=== PATIENT | male | born 1980 | race Caucasian/White ===

== ENCOUNTER 2016-08-18 10:05 | Emergency (ER) | payer OTHER ==
[~2016-08-18] VITALS: Ht 180.3 cm; Wt 108.9 kg
[~2016-08-18 10:05] MED LIST: ALEVE220 MG PO; AMOXICILLIN500 MG PO; BUSPIRONE HCL5 MG PO; COUMADIN5 MG PO; CYMBALTA60 MG PO; FLEXERIL10 MG PO; FLEXERIL5 MG PO; FLUOXETINE HCL40 MG PO; IBUPROFEN400 MG PO; LOVENOX120 MG/0.8 SC; MOTRIN800 MG PO; NORCO 5/3251 TABLET PO; PROZAC40 MG PO; RANITIDINE HCL150 MG PO; ST. JOSEPH ASPI81 MG PO; TRAMADOL HCL50 MG PO; ULTRAM50 MG PO; VICODIN 5-3001 EACH PO; XARELTO20 MG PO; ZESTORETIC 20-1 EAC1 PO; ZESTRIL20 MG PO; ZOFRAN4 MG PO
[2016-08-18 11:32] LABS: BASOPHIL COUNT 0.1 K/uL (0-0.1); EOSINOPHIL (%) 1.4 % (0-5); EOSINOPHIL COUNT 0.1 K/uL (0-0.3); HEMATOCRIT 47.3 % (38.0-50.0); IMMATURE GRANULOCYTE (%) 0.5 % (0.0-0.7); INSTRUMENT ABS NEUTROPHIL CT 5.6 K/uL; LYMPHOCYTE COUNT 0.6 K/uL (1.0-2.8); MCH 30.4 PG (29.0-34.0); MCV 89.2 FL (86-99); MEAN PLAT.VOLUME 11.6 uM^3 (9.0-12.4); MONOCYTE (%) 13.2 % (3-12); NEUTROPHIL (%) 76.2 % (45-76); NEUTROPHIL COUNT 5.6 K/uL (1.8-6.4); PLATELET COUNT 156 K/uL (156-360); RBC DIS.WIDTH-CV 12.7 % (11.8-14.6); RBC DIS.WIDTH-SD 41.8 % (39-53); WHITE BLOOD COUNT 7.4 K/uL (4.1-10.2)
[2016-08-18 11:45] LABS: CHLORIDE 102 mEq/L (99-109); POTASSIUM 4.5 mEq/L (3.7-5.4); SODIUM 133 mEq/L (136-147)
[2016-08-18 11:48] LABS: GLUCOSE 104 mg/dL (70-99)
[2016-08-18 11:49] LABS: ANION GAP 7 MEQ/L (2-14); TOTAL BILIRUBIN 1.5 mg/dL (0.0-1.0)
[2016-08-18 11:51] LABS: ALKALINE PHOSPHATASE 52 IU/L (3-129); GFR ESTIMATE (CALCULATED) > 59 mL/min/
[2016-08-18 11:52] LABS: UREA NITROGEN (BUN) 15 mg/dL (9-23)
[2016-08-18 11:53] LABS: TROP-I INTERPRETATION NEGATIVE; TROPONIN-I 0.01 ng/mL (0.0-0.30)
[2016-08-18 11:54] LABS: INTER. NORMALIZED RATIO 1.1; PROTHROMBIN TIME 10.9 (9.2-11.2); PTT 27.1 (25-32)
[2016-08-18] MEDS ORDERED: ATARAX,VISTARIL25 MG PO (13:40)
[2016-08-18] MEDS ORDERED: XARELTO1 EACH PO (13:41)
[2016-08-18 14:29] VITALS: BP 135/72
== END 2016-08-18 14:31 | disposition home or self-care (01) ==
LOC: EME 10:05
PROVIDERS: Emergency Medicine
DX: I82.531 Chronic embolism and thrombosis of right popliteal vein (principal); F41.9 Anxiety disorder, unspecified; I10 Essential (primary) hypertension
CPT/HCPCS: 71275; 80053; 84484; 85025; 85610; 85730; 93005; 93971; 99281; 99284; J7030

== ENCOUNTER 2016-08-23 19:50 | Observation (INO) | payer OTHER ==
[~2016-08-23] VITALS: Ht 180.3 cm; Wt 109.2 kg
[~2016-08-23 19:50] MED LIST changes: +ATARAX,VISTARIL25 MG PO; +XARELTO1 EACH PO
[2016-08-23 21:16] LABS: HEMATOCRIT 41.5 % (38.0-50.0); MCH 30.4 PG (29.0-34.0); MCHC 34.5 G/DL (30.0-36.0); MCV 88.1 FL (86-99); MEAN PLAT.VOLUME 11.1 uM^3 (9.0-12.4); PLATELET COUNT 162 K/uL (156-360); RBC DIS.WIDTH-CV 12.4 % (11.8-14.6); RBC DIS.WIDTH-SD 40.3 % (39-53); RED BLOOD COUNT 4.71 M/uL (4.00-5.50); WHITE BLOOD COUNT 5.3 K/uL (4.1-10.2)
[2016-08-23 21:26] LABS: CHLORIDE 102 mEq/L (99-109); POTASSIUM 3.8 mEq/L (3.7-5.4); SODIUM 136 mEq/L (136-147)
[2016-08-23 21:28] LABS: GLUCOSE 107 mg/dL (70-99)
[2016-08-23 21:30] LABS: ANION GAP 9 MEQ/L (2-14)
[2016-08-23 21:31] LABS: SERUM ETHYL ALCOHOL < 10 mg/dL
[2016-08-23 21:32] LABS: ALKALINE PHOSPHATASE 49 IU/L (3-129); GFR ESTIMATE (CALCULATED) > 59 mL/min/
[2016-08-23 21:33] LABS: UREA NITROGEN (BUN) 11 mg/dL (9-23)
[2016-08-23 21:36] LABS: TOTAL BILIRUBIN 0.8 mg/dL (0.0-1.0); TROP-I INTERPRETATION NEGATIVE; TROPONIN-I < 0.01 ng/mL (0.0-0.30)
[2016-08-24] MEDS ORDERED: XARELTO15 MG PO (00:13)
[2016-08-24] MEDS ORDERED: XARELTO20 MG PO (00:14)
[2016-08-24] MEDS ORDERED: AMLODIPINE BESYL5 MG PO (00:14)
[2016-08-24 01:19] LABS: ADD MIUA? NO; BILIRUBIN NEGATIVE; BLOOD NEGATIVE; COLOR STRAW ((YELLOW)); GLUCOSE (STRIP) NEGATIVE; KETONES 5; LEUKOCYTES NEGATIVE; NITRITE NEGATIVE; PROTEIN (STRIP) NEGATIVE; SPECIFIC GRAVITY 1.016 (1.000-1.030); UCUL ADDED? NO; UROBILINOGEN 0.2 MG/DL (0.2-1.0)
[2016-08-24 01:49] LABS: LIPASE 31 U/L (1.0-51.0)
[2016-08-24 02:04] VITALS: BP 115/66
[2016-08-24 02:15] LABS: ADD MEDTOX COMMENT Y; AMPHETAMINE NEGATIVE (500 ng/mL); BARBITURATES NEGATIVE (200 ng/mL); BENZODIAZEPINES NEGATIVE (150 ng/mL); COCAINE NEGATIVE (150 ng/mL); INTERNAL CONTROLS VALID? YES; METHADONE NEGATIVE (200 ng/mL); METHAMPHETAMINE NEGATIVE (500 ng/mL); OPIATES (MORPHINE) NEGATIVE (100 ng/mL); OXYCODONE NEGATIVE (100 ng/mL); PHENCYCLIDINE NEGATIVE (25 ng/mL); PROPOXYPHENE NEGATIVE (300 ng/mL); THC CANNABINOIDS PRESUMPTIVE POSITIVE (50 ng/mL); TRICYCLIC ANTIDEPRESSANTS NEGATIVE (300 ng/mL)
[2016-08-24 02:51] LABS: AMPHETAMINES QUANT VALUE 0 NG/ML; BARBITUATES QUANT VALUE 0 NG/ML; BENZODIAZEPINES QUANT VALUE 0 NG/ML; BENZODIAZEPINES, URINE SCREEN Negative (200 ng/mL); OPIATES QUANTITATIVE VALUE 0 NG/ML; PHENCYCLIDINE QUANT VALUE 0 NG/ML
[2016-08-24 04:06] VITALS: BP 111/67
[2016-08-24 05:26] LABS: TROP-I INTERPRETATION NEGATIVE; TROPONIN-I 0.01 ng/mL (0.0-0.30)
[2016-08-24 08:45] VITALS: BP 121/70
[2016-08-24 11:39] LABS: TROP-I INTERPRETATION NEGATIVE; TROPONIN-I < 0.01 ng/mL (0.0-0.30)
[2016-08-24 11:40] VITALS: BP 118/73
[2016-08-24] MEDS ORDERED: CYCLOBENZAPRINE10 MG PO (12:12)
[2016-08-24] MEDS ORDERED: LIDOCAINE700 MG TD (12:13)
[2016-08-24] MEDS ORDERED: TRAMADOL HCL50 MG PO (12:14)
[2016-08-24 13:30] LABS: HDL CHOLESTEROL 29 MG/DL (Desirable>=40); LDL CHOLESTEROL 48 mg/dL (Desirable<100); NON-HDL CHOLESTEROL 57 mg/dL (Desirable<160); TOTAL CHOLESTEROL 86 mg/dL (Desirable<200); TRIGLYCERIDES 45 MG/DL (Normal: <150)
== END 2016-08-24 15:27 | disposition home or self-care (01) ==
LOC: EME 19:50 → EDOF 08-24 00:34 → 5WEST 08-24 01:49
PROVIDERS: Emergency Medicine; Physician Assistant Medical
DX: R07.89 Other chest pain (principal); I16.0 Hypertensive urgency; K76.0 Fatty (change of) liver, not elsewhere classified; I10 Essential (primary) hypertension; R20.0 Anesthesia of skin; Z86.718 Personal history of other venous thrombosis and embolism; F41.9 Anxiety disorder, unspecified; F32.9 Major depressive disorder, single episode, unspecified; E66.9 Obesity, unspecified; Z68.33 Body mass index [BMI] 33.0-33.9, adult
CPT/HCPCS: 71275; 80053; 80061; 80306 90; 81003; 83605; 83690; 84484; 84999; 85027; 93005; G0378; G0480; J7030